=== PATIENT | female | born 1970 | race Caucasian/White ===

== ENCOUNTER 2024-04-05 09:08 | Emergency (ER) | payer OTHER ==
[2024-04-05] MEDS ORDERED: Dextrose 5%-0.9% NaCl 1,000 ML IV SCH (10:45)
[2024-04-05] MEDS: HYDROmorphone 0.5 MG/0.5 ML Syringe IVPUSH ONE (11:32)
[2024-04-05] MEDS: Metoclopramide 10 MG/2 ML SDV IVPUSH ONE (11:32)
[2024-04-05] MEDS: Acetaminophen/oxyCODONE 325-5 MG Tab PO ONE (20:37)
[2024-04-05] MEDS: Ondansetron 4 MG Tab.DIS PO ONE (20:37)
[2024-04-05] MEDS: Ibuprofen 600 MG Tab PO ONE (20:37)
== END 2024-04-05 12:15 | disposition home or self-care (01) ==
LOC: JD.ED 09:08 → MERGE 09:08 → JD.ED 12:15
DX: S80.01XA Contusion of right knee, initial encounter (principal); W01.0XXA Fall on same level from slipping, tripping and stumbling without subsequent striking against object, initial encounter
CPT/HCPCS: 73562-26-RT; 73562-RT; 99283

== ENCOUNTER 2025-07-17 11:20 | Emergency (ER) | payer BC, OTHER ==
[2025-07-17] MEDS ORDERED: Naloxone 0.4 MG/ML SDV IVPUSH PRN (13:12)
[2025-07-17] MEDS: Ketorolac 30 MG/ML SDV IM ONE (13:21)
== END 2025-07-17 13:49 | disposition home or self-care (01) ==
LOC: EDUNIT# → EDBD → JD.ED 11:20
DX: M25.552 Pain in left hip (principal); Z79.899 Other long term (current) drug therapy
CPT/HCPCS: 73502; 96372; 99283; J1171